=== PATIENT | female | born 1960 | race Native Hawaiian/Other Pacific Islander ===

== ENCOUNTER 2016-02-15 09:26 | Outpatient (CLI) | payer BC ==
[~2016-02-15 09:26] MED LIST: EVAMIST1.53 MG TD; MILLIPRED DP5 MG OR; NEXIUM40 M1 PO; PROMSYP53 PO; SINGULAIR10 MG PO; Z-PAK PO
== END 2016-02-15 19:20 | disposition home or self-care (01) ==
LOC: MAMMO 09:26
DX: Z12.31 Encounter for screening mammogram for malignant neoplasm of breast (principal)
CPT/HCPCS: G0202-TC

== ENCOUNTER 2016-11-10 17:14 | Outpatient (CLI) | payer BC | END 2016-11-10 19:29 | disposition home or self-care (01) | LOC: RAD 17:14 | DX: R06.02 Shortness of breath (principal) ==

== ENCOUNTER 2016-12-12 08:02 | Outpatient (CLI) | payer BC | END 2016-12-12 09:30 | disposition home or self-care (01) | LOC: CT 08:02 | DX: R05 Cough (principal); J32.8 Other chronic sinusitis ==

== ENCOUNTER 2018-02-04 11:55 | Outpatient (CLI) | payer BC | END 2018-02-04 19:14 | disposition home or self-care (01) | LOC: RAD 11:55 | DX: J45.40 Moderate persistent asthma, uncomplicated (principal) ==

== ENCOUNTER 2019-10-18 10:27 | Outpatient (CLI) | payer BC, OTHER | END 2019-10-18 23:55 | disposition home or self-care (01) | LOC: LAB 10:27 | DX: Z11.59 Encounter for screening for other viral diseases (principal); R05 Cough; R53.83 Other fatigue; R52 Pain, unspecified | CPT/HCPCS: 87635; G2023; U0003 ==

== ENCOUNTER 2019-12-11 14:07 | Outpatient (CLI) | payer BC | END 2019-12-11 22:37 | disposition home or self-care (01) | LOC: RAD 14:07 | DX: J45.40 Moderate persistent asthma, uncomplicated (principal) ==

== ENCOUNTER 2020-02-24 14:09 | Outpatient (CLI) | payer BC | END 2020-02-24 19:26 | disposition home or self-care (01) | LOC: CT 14:09 | PROVIDERS: ATTEND Nurse Practitioner Family | DX: R10.9 Unspecified abdominal pain (principal) | CPT/HCPCS: 36415; 82565; 84520; Q9963 ==

== ENCOUNTER 2020-10-19 18:02 | Outpatient (CLI) | payer BC, OTHER | END 2020-10-19 22:27 | disposition home or self-care (01) | LOC: RAD 18:02 | PROVIDERS: ATTEND Nurse Practitioner Family | DX: U07.1 COVID-19 (principal); R05 Cough; R06.02 Shortness of breath ==

== ENCOUNTER 2020-12-07 07:59 | Outpatient (CLI) | payer BC | END 2020-12-07 19:20 | disposition home or self-care (01) | LOC: CT 07:59 | PROVIDERS: ATTEND Nurse Practitioner Family | DX: R10.30 Lower abdominal pain, unspecified (principal); R10.31 Right lower quadrant pain; R10.2 Pelvic and perineal pain | CPT/HCPCS: 36415; 82565; 84520; Q9963 ==

== ENCOUNTER 2020-12-17 09:25 | Outpatient (CLI) | payer BC | END 2020-12-17 20:03 | disposition home or self-care (01) | LOC: US 09:25 | PROVIDERS: ATTEND Nurse Practitioner Family | DX: K42.9 Umbilical hernia without obstruction or gangrene (principal); R10.32 Left lower quadrant pain; R10.31 Right lower quadrant pain ==

== ENCOUNTER 2021-03-17 10:49 | Day surgery (SDC) | payer BC ==
[~2021-03-17] VITALS: Ht 30.5 cm; Wt 0.5 kg
== END 2021-03-17 14:20 | disposition home or self-care (01) ==
LOC: OR 10:49
PROVIDERS: ATTEND Internal Medicine Gastroenterology
PROC: 0DB68ZZ Excision of Stomach, Via Natural or Artificial Opening Endoscopic (ICD-10-PCS; principal; 2021-03-17)
PROC: 0DB88ZZ Excision of Small Intestine, Via Natural or Artificial Opening Endoscopic (ICD-10-PCS; 2021-03-17)
DX: K21.00 Gastro-esophageal reflux disease with esophagitis, without bleeding (principal); K29.50 Unspecified chronic gastritis without bleeding; R10.12 Left upper quadrant pain; R10.13 Epigastric pain; Z20.822 Contact with and (suspected) exposure to COVID-19
CPT/HCPCS: 87635; J2704; U0003